=== PATIENT | female | born 1960 | race African-American/Black ===

== ENCOUNTER 2025-02-04 20:01 | Emergency (ER) | payer OTHER ==
[~2025-02-04] VITALS: Ht 165.1 cm; Wt 78.0 kg
[2025-02-04 20:07] VITALS: O2SAT 99
[2025-02-04 21:50] LABS: BASOPHILS % 1.2 % (0.0-2.0); EOSINOPHILS % 2.9 % (0.0-5.0); HEMATOCRIT. 26.4 % (36.0-48.0); HEMOGLOBIN. 9.0 g/dL (12.0-16.0); LYMPHOCYTES % 36.7 % (20.0-50.0); MEAN PLATELET VOLUME 8.0 fl (7.4-10.4); MONOCYTES % 8.4 % (2.0-8.0); NEUTROPHILS % 50.8 % (40.0-76.0); PLATELET 224 x1000/uL (130-400); RED BLOOD CELL COUNT 2.92 mill/uL (4.2-5.4); RED CELL DISTRIBUTION WIDTH 13.3 % (11.6-14.6)
[2025-02-04 22:01] LABS: CREATININE 1.2 mg/dL (0.6-1.0)
[2025-02-04 22:02] LABS: UREA NITROGEN BLOOD 19 mg/dL (9-23)
[2025-02-04 22:03] LABS: ASPARTATE AMINOTRANSFERASE 13 IU/L (<34); TROPONIN I HIGH SENSITIVITY < 4 ng/L (3.0-34)
[2025-02-04 22:04] LABS: BILIRUBIN DIRECT 0.1 mg/dL (<=3.0); BILIRUBIN TOTAL 0.3 mg/dL (0.1-1.0); PROTEIN TOTAL 7.6 g/dL (6.0-8.3)
[2025-02-04 23:21] VITALS: BP 135/70; PULSE 70; RESP 14; TEMP 36.7
== END 2025-02-04 23:00 | disposition home or self-care (01) ==
LOC: ER 20:34 → CMPBEDREQ 02-06 09:34
DX: R00.2 Palpitations (principal); E11.9 Type 2 diabetes mellitus without complications; I10 Essential (primary) hypertension; Z90.89 Acquired absence of other organs; Z79.899 Other long term (current) drug therapy
CPT/HCPCS: 36415; 71045; 80048; 80076; 84443; 84484; 85025; 93005; 99285